=== PATIENT | female | born 2005 | race Caucasian/White ===

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

== ENCOUNTER 2023-01-21 13:13 | Day surgery (SDC) | payer OTHER ==
[2023-01-21] MEDS ORDERED: BUPIVACAINE 0.5% VIAL IJ ONE (13:14)
[2023-01-21] MEDS ORDERED: Depo-Medrol 40 MG/ML IM ONE (13:14)
[2023-01-21] MEDS ORDERED: DIPRIVAN 200 MG/20 ML IV ONE ×2 (15:26→15:34)
[2023-01-21] MEDS ORDERED: Lactated Ringers 1,000 ML IV ONE (15:33)
--- NOTE | 2023-01-21 16:31 | XRAY ---
Indication: Bilateral SI joint injection. Intraoperative fluoroscopy provided for 14 seconds. 4 digital spot image submitted for interpretation demonstrates posterior needle tip projecting over the left and right SI joints. Correlate with intraoperative findings/report.
--- NOTE | 2023-01-22 08:42 | XRAY ---
14 seconds of fluoroscopy was used in surgery for a bilateral sacroiliac joint injection.
== END 2023-01-21 15:53 | disposition home or self-care (01) ==
LOC: SDC-PAIN 13:13
PROVIDERS: ATTEND Psychiatry & Neurology Pain Medicine
DX: M46.1 Sacroiliitis, not elsewhere classified (principal)
CPT/HCPCS: 27096; 72202; 77002; 81025; J1030; J2704; G0260